=== PATIENT | female | born 1985 | race Two or more races ===

== ENCOUNTER 2018-09-14 07:12 | Emergency (ER) | payer MEDICAID ==
[~2018-09-14] VITALS: Ht 162.6 cm; Wt 83.2 kg
[~2018-09-14 07:12] MED LIST: HYDR-3965 PO; HYDR-4383 PO
[2018-09-14] MEDS ORDERED: HYDR-4353 PO (08:19)
[2018-09-14 08:37] VITALS: BP 124/74
== END 2018-09-14 08:41 | disposition home or self-care (01) ==
LOC: ER 07:13
DX: K08.89 Other specified disorders of teeth and supporting structures (principal); Z88.6 Allergy status to analgesic agent; Z79.899 Other long term (current) drug therapy
CPT/HCPCS: 99283